=== PATIENT | female | born 1995 | race American Indian/Alaskan Native ===

== ENCOUNTER 2021-03-10 18:27 | Emergency (ER) | payer SELFPAY ==
[2021-03-10] MEDS ORDERED: SODIUM CHLORIDE 0.9% 1000 ML 1,000 ML IV ONE (20:10)
[2021-03-10] MEDS ORDERED: ALBUTEROL 2.5 MG/3 ML NEBU IH ONE (20:11)
--- NOTE | 2021-03-10 20:11 | Emergency Department Report ---
ED Chest Pain HPI - General Chief Complaint: Chest Pain Stated Complaint: CHEST PAINS PUI?: No Time Seen by Provider: 03/10/21 19:51 Source: patient Mode of arrival: Ambulatory Limitations: No Limitations - History of Present Illness Initial Comments: 25-year-old female who denies any significant past medical history presents to the ER via EMS today with complaints of chest pain. Patient states that she woke up with chest pain this morning. Patient states that she is having pain diffusely under both her breasts and also diffusely to her upper chest. She describes as a tightness/pressure which has been constant all day. She states that the pain seemed to get better when she stands and walks but when she do stands and walks she gets a little dizzy. She states that the pain seems to be worse when she is sitting down or laying down. She states that she feels like she is having difficulty taking a deep breath. She denies any cough, wheezing, URI symptoms, fever or chills. She denies any nausea, vomiting, LE swelling or calf pain. She denies drug use or tobacco use. She denies any clotting disorders and denies any thromboembolic risk factors. MD Complaint: chest pain -: Gradual, days(s) (1) - Related Data Previous Rx's Medication Instructions Recorded Last Taken Type ALBUTEROL NEB's [Proventil 0.083% 2.5 mg IH QID PRN #30 vial 03/10/21 Unknown Rx NEBS] Albuterol Mdi (or & Nicu Only) 2 puff IH QID PRN #8.5 gram 03/10/21 Unknown Rx [ProAir HFA Inhaler] Ibuprofen [Motrin] 600 mg PO Q8H PRN #30 tablet 03/10/21 Unknown Rx Allergies Allergy/AdvReac Type Severity Reaction Status Date / Time No Known Allergies Allergy Unverified 03/10/21 18:33 Heart Score - HEART Score History: Slightly suspicious EKG: Normal Age: < 45 Risk factors: No known risk factors Troponin: < normal limit HEART Score: 0 - EKG Read Time Time EKG Completed: 18:41 EKG Read Time: 18:45 ED Review of Systems ROS: Stated complaint: CHEST PAINS Other details as noted in HPI Comment: All other systems reviewed and negative Constitutional: denies: chills, fever Eyes: denies: eye pain, eye discharge, vision change ENT: denies: ear pain, throat pain Respiratory: shortness of breath. denies: cough, wheezing Cardiovascular: chest pain Gastrointestinal: nausea. denies: abdominal pain, vomiting, diarrhea, constipat ion, hematemesis, hematochezia Genitourinary: denies: urgency, dysuria, frequency, hematuria, discharge, abnormal menses, dyspareunia Musculoskeletal: denies: back pain, joint swelling, arthralgia, myalgia Skin: denies: rash, lesions Neurological: denies: headache, weakness, numbness, paresthesias, confusion, abnormal gait, vertigo Psychiatric: denies: anxiety, depression, auditory hallucinations, visual hallucinations, homicidal thoughts, suicidal thoughts Hematological/Lymphatic: denies: easy bleeding, easy bruising, swollen glands ED Past Medical Hx - Past Medical History Previous Medical History?: No - Surgical History Additional Surgical History: - Social History Smoking Status: Never Smoker - Medications Home Medications: Home Medications Medication Instructions Recorded Confirmed Last Taken Type ALBUTEROL NEB's [Proventil 0.083% 2.5 mg IH QID PRN #30 vial 03/10/21 Unknown Rx NEBS] Albuterol Mdi (or & Nicu Only) 2 puff IH QID PRN #8.5 gram 03/10/21 Unknown Rx [ProAir HFA Inhaler] Ibuprofen [Motrin] 600 mg PO Q8H PRN #30 tablet 03/10/21 Unknown Rx ED Physical Exam - General Limitations: No Limitations General appearance: alert, in no apparent distress, anxious - Head Head exam: Present: atraumatic, normocephalic, normal inspection - Eye Eye exam: Present: normal appearance, PERRL, EOMI Pupils: Present: normal accommodation - ENT ENT exam: Present: normal exam, mucous membranes moist - Neck Neck exam: Present: normal inspection, full ROM - Respiratory Respiratory exam: Present: normal lung sounds bilaterally, chest wall tenderness (mild ttp diffusely upper and lower chest wall -- reproducing pain ). Absent: respiratory distress, wheezes, rales, rhonchi - Cardiovascular Cardiovascular Exam: Present: regular rate, normal rhythm, normal heart sounds - GI/Abdominal GI/Abdominal exam: Present: soft. Absent: distended, tenderness, guarding, rebound - Extremities Exam Extremities exam: Present: normal inspection, full ROM, normal capillary refill. Absent: tenderness, pedal edema, calf tenderness - Neurological Exam Neurological exam: Present: alert, oriented X3, CN II-XII intact, normal gait - Psychiatric Psychiatric exam: Present: normal affect, normal mood, anxious - Skin Skin exam: Present: intact ED Course Vital Signs 03/10/21 18:36 Temperature 98.5 F Pulse Rate 69 Respiratory 20 Rate Blood Pressure 101/52 O2 Sat by Pulse 100 Oximetry ANIRUDH score - Anirudh Score Age > 65: (0) No Aspirin use within the Past 7 Days: (0) No 3 or more CAD Risk Factors: (0) No 2 or more Angina events in past 24 hrs: (0) No Known CAD with more than 50% Stenosis: (0) No Elevated Cardiac Markers: (0) No ST Deviation Greater than 0.5mm: (0) No ANIRUDH Score: 0 ED Medical Decision Making - Lab Data Result diagrams: 03/10/21 20:21 03/10/21 20:21 - EKG Data EKG shows normal: sinus rhythm Rate: normal (62) - EKG Data Interpretation: normal EKG - Radiology Data Radiology results: report reviewed Patient: NATHAN MORA MR#: [id number] : 1995 Acct:[id number] Age/Sex: 25 / F ADM Date: 03/10/21 Loc: ED Attending Dr: Ordering Physician: VIRGINIA BUCK Date of Service: 03/10/21 Procedure(s): XR chest routine 2V Accession Number(s): [id number] cc: VIRGINIA BUCK Fluoro Time In Minutes: CHEST 2 VIEWS INDICATION / CLINICAL INFORMATION: Chest Pain. COMPARISON: None available. FINDINGS: SUPPORT DEVICES: None. HEART / MEDIASTINUM: No significant abnormality. LUNGS / PLEURA: No significant pulmonary or pleural abnormality. No pneumothorax. ADDITIONAL FINDINGS: No significant additional findings. IMPRESSION: 1. No acute findings. Signer Name: Juan Carlos Nielson MD Signed: 03/10/2021 8:38 PM Workstation Name: [id number] Transcribed By: SS Dictated By: Juan Carlos Nielosn MD Electronically Authenticated By: Juan Carlos Nielson MD Signed Date/Time: 03/10/212037 DD/ 37 TD/TT: - Medical Decision Making Chest xray shows nothing acute. EKG is normal without any STEMI, ischemic changes or significant dysrhythmias. Labs reviewed-patient is mildly anemic with a hemoglobin of 9 but she reports known history of anemia. non specific mild decrease in CO 2 of 18 but anion gap normal, BS only 113 and remainder of CMP unremarkable. Trop neg and d-dimer is normal. The patient currently is resting comfortably and feels better after neb treatment, she is is alert and in no distress. The repeat examination is unremarkable and benign. She has HEART score of 0 and PERC 0. Her history, exam, diagnostic testing and current condition do not suggest that this patient is having acute myocardial infarction, significant arrhythmia, unstable angina, esophageal perforation, pulmonary embolism, aortic dissection, pneumothorax, severe pneumonia, sepsis or other significant pathology that would warrant further testing, continued ED treatment, admission or cardiology or other specialist consultation at this time. Discuss lab results, imaging results, suspected diagnosis and treatment plan with patient. Hervital signs have been stable. The patient's condition is stable and appropriate for discharge. The patient will pursue further outpatient evaluation with the primary care physician. Critical care attestation.: If time is entered above; I have spent that time in minutes in the direct care of this critically ill patient, excluding procedure time. ED Disposition Clinical Impression: Nonspecific chest pain, Chest wall pain, Bronchospasm, Anemia Disposition: DC-01 TO HOME OR SELFCARE Is pt being admited?: No Does the pt Need Aspirin: No Condition: Stable Instructions: Nonspecific Chest Pain, Adult, [id number], Bronchospasm, Adult, [id number], Chest Wall Pain Additional Instructions: Use the albuterol inhaler or albuterol nebulizer treatments every 4-6 hours as needed for shortness of breath. Take the ibuprofen as prescribed for pain. Recommend close follow-up with the primary care doctors listed on your discharge instructions. Return to the ER if your symptoms changes or worsens in any way. Prescriptions: Ibuprofen [Motrin] 600 mg PO Q8H PRN #30 tablet PRN Reason: Pain Albuterol Mdi (or & Nicu Only) [ProAir HFA Inhaler] 2 puff IH QID PRN #8.5 gram PRN Reason: Shortness Of Breath ALBUTEROL NEB's [Proventil 0.083% NEBS] 2.5 mg IH QID PRN #30 vial PRN Reason: Shortness Of Breath Referrals: YOSI ODOM MD [Staff Physician] - 7-10 days Time of Disposition: 22:06
--- NOTE | 2021-03-10 20:43 | XRay Report ---
CHEST 2 VIEWS INDICATION / CLINICAL INFORMATION: Chest Pain. COMPARISON: None available. FINDINGS: SUPPORT DEVICES: None. HEART / MEDIASTINUM: No significant abnormality. LUNGS / PLEURA: No significant pulmonary or pleural abnormality. No pneumothorax. ADDITIONAL FINDINGS: No significant additional findings. IMPRESSION: 1. No acute findings. Signer Name: Juan Carlos Nielson MD Signed: 03/10/2021 8:38 PM Workstation Name: [id number]
[2021-03-10 20:52] LABS: Basophils # (Auto) 0.1 K/mm3 (0.0-0.1); Eosinophils # (Auto) 0.1 K/mm3 (0.0-0.4); Hematocrit 29.1 % (30.3-42.9); Lymphocytes % (Auto) 38.8 % (13.4-35.0); Mean Corpuscular HGB Conc 31 % (30-34); Mean Corpuscular Volume 71 fl (79-97); Monocytes # (Auto) 0.3 K/mm3 (0.0-0.8); Monocytes % (Auto) 4.4 % (0.0-7.3); Platelet Count 301 K/mm3 (140-440); Red Blood Count 4.07 M/mm3 (3.65-5.03); Red Cell Distribution Width 18.4 % (13.2-15.2)
[2021-03-10 21:56] LABS: Alanine Aminotransferase 9 units/L (7-56); Albumin 4.3 g/dL (3.9-5); BUN/Creatinine Ratio 8; Blood Urea Nitrogen 4 mg/dL (7-17); Calcium 9.1 mg/dL (8.4-10.2); Hemolysis Index 4
[2021-03-10 22:15] LABS: Amphetamine Screen,Urine PRESUMPTIVE NEGATIVE; Benzodiazepines Screen,Urine PRESUMPTIVE NEGATIVE; Cannabinoid Screen,Urine PRESUMPTIVE POSITIVE; Cocaine Screen,Urine PRESUMPTIVE NEGATIVE; Methadone Screen,Urine PRESUMPTIVE NEGATIVE; Opiate Screen,Urine PRESUMPTIVE NEGATIVE
[2021-03-10 23:28] VITALS: BP 109/69
--- NOTE | 2021-03-11 10:54 | Electrocardiograph Report ---
[facility] Test Date: 2021-03-10 Test Time: 18:41:16 Pat Name: NATHAN MORA Department: ED Room: Gender: F [employer] Level Business [employer]st: THERESA : 1995 Requested By: VIRGINIA BUCK Order Number: [id number] Reading MD: Ho Ravi Measurements Intervals [place] Rate: 62 P: 57 AR: 75 QRS: 63 QRSD: 73 T: 53 QT: 375 QTc: 381 Interpretive Statements Sinus rhythm No previous ECG available for comparison Electronically Signed On 03-11-2021 10:53:46 EDT by Ho Ravi
== END 2021-03-10 22:22 | disposition home or self-care (01) ==
LOC: ED 18:27
DX: J98.01 Acute bronchospasm (principal); D64.9 Anemia, unspecified; Z98.890 Other specified postprocedural states; Z79.899 Other long term (current) drug therapy
CPT/HCPCS: 36415; 71046; 80053; 80307; 83690; 84484; 85025; 85379; 93005; 94640; 96360; 99284; J7030